=== PATIENT | male | born 1955 | race Caucasian/White ===

== ENCOUNTER 2019-09-12 12:56 | Emergency (ER) | payer SELFPAY ==
[2019-09-12] MEDS ORDERED: HYDROmorphone 1 MG/ML CARPUJECT IVP STA ×3 (13:27→16:20)
[2019-09-12] MEDS ORDERED: ONDANSETRON 4 MG/2 ML VIAL IVP STA (13:27)
--- NOTE | 2019-09-12 13:29 | ED Physician Documentation ---
PD HPI ABD PAIN - Stated complaint Stated Complaint: MALE PX - Chief complaint Chief Complaint: Abd Pain - History obtained from History obtained from: Patient - History of Present Illness Timing - onset: Other (Fairly sudden onset left lower quadrant and left flank pain last night associated with some hematuria without clots and some dysuria. No history of kidney stones.) Review of Systems Ten Systems: 10 systems reviewed and negative Constitutional: denies: Fever, Chills Cardiac: denies: Chest pain / pressure, Palpitations Respiratory: denies: Dyspnea, Cough PD PAST MEDICAL HISTORY - Present Medications Home Medications: Ambulatory Orders Medication Instructions Recorded Confirmed Polyethylene Glycol 3350 [Miralax] 17 gm PO DAILY PRN #1 bottle 09/12/19 traMADol [Ultram] 50 mg PO Q4-6H PRN #10 tablet 09/12/19 - Allergies Allergies/Adverse Reactions: Allergies Allergy/AdvReac Type Severity Reaction Status Date / Time ciprofloxacin Allergy Rash Verified 09/12/19 14:07 ketorolac [From Toradol] Allergy Anaphylaxis Verified 09/12/19 14:07 promethazine AdvReac Headache Verified 09/12/19 14:07 PD ED PE NORMAL - Vitals Vital signs reviewed: Yes - General General: Alert and oriented X 3, Other (Appears uncomfortable) - Neck Neck: Supple, no meningeal sign, No bony TTP - Cardiac Cardiac: RRR, No murmur - Respiratory Respiratory: No respiratory distress, Clear bilaterally - Abdomen Abdomen: Non tender - Back Back: Other (Mild left flank tenderness, no abdominal tenderness.) - Derm Derm: Normal color, Warm and dry - Extremities Extremities: No edema, No calf tenderness / cord - Neuro Neuro: Alert and oriented X 3, Normal speech Results - Vitals Vitals: Vital Signs - 24 hr 09/12/19 09/12/19 09/12/19 13:09 13:11 15:11 Temperature 36 C L 36.7 C Heart Rate 79 79 73 Respiratory 18 18 16 Rate Blood Pressure 147/74 H 147/74 H 134/79 H O2 Saturation 100 100 98 09/12/19 16:15 Temperature 36.5 C Heart Rate 76 Respiratory 16 Rate Blood Pressure 130/72 O2 Saturation 99 Oxygen O2 Source Room air - Labs Labs: Laboratory Tests 09/12/19 09/12/19 09/12/19 13:34 13:34 14:40 WBC 4.6 L RBC 4.03 L Hgb 12.2 L Hct 38.8 L MCV 96.3 H MCH 30.3 MCHC 31.4 L RDW 13.3 Plt Count 240 MPV 8.4 Neut # (Auto) 2.8 Lymph # (Auto) 1.1 L [place] # (Auto) 0.6 Eos # (Auto) 0.1 Baso # (Auto) 0.1 Absolute Nucleated RBC 0.00 Nucleated RBC % 0.0 Sodium Potassium Chloride Carbon Dioxide Anion Gap BUN Creatinine Estimated GFR (MDRD) Glucose Calcium Total Bilirubin AST ALT Alkaline Phosphatase Total Protein Albumin Globulin Albumin/Globulin Ratio Lipase Urine Color YELLOW Urine Clarity SL. CLOUDY Urine pH 7.0 Ur Specific Barry <=1.005 Urine Protein NEGATIVE Urine Glucose (UA) NEGATIVE Urine Ketones NEGATIVE Urine Occult Blood LARGE H Urine Nitrite NEGATIVE Urine Bilirubin NEGATIVE Urine Urobilinogen 0.2 (NORMAL) Ur Leukocyte Esterase NEGATIVE Urine RBC TNTC H Urine WBC 0-3 Ur Squamous Epith Cells MOD Squamous H Urine Bacteria Rare Ur Microscopic Review INDICATED Urine Culture Comments NOT INDICATED Urine Opiates Screen NEGATIVE Ur Oxycodone Screen NEGATIVE Urine Methadone Screen NEGATIVE Ur Propoxyphene Screen NEGATIVE Ur Barbiturates Screen NEGATIVE Ur Tricyclics Screen NEGATIVE Ur Phencyclidine Scrn NEGATIVE Ur Amphetamine Screen NEGATIVE U Methamphetamines Scrn NEGATIVE U Benzodiazepines Scrn NEGATIVE Urine Cocaine Screen NEGATIVE U Cannabinoids Screen NEGATIVE 09/12/19 14:40 WBC RBC Hgb Hct MCV MCH MCHC RDW Plt Count MPV Neut # (Auto) Lymph # (Auto) [place] # (Auto) Eos # (Auto) Baso # (Auto) Absolute Nucleated RBC Nucleated RBC % Sodium 139 Potassium 3.9 Chloride 105 Carbon Dioxide 27 Anion Gap 7.0 BUN 10 Creatinine 0.8 Estimated GFR (MDRD) 97 Glucose 88 Calcium 9.1 Total Bilirubin 0.7 AST 17 ALT 14 Alkaline Phosphatase 60 Total Protein 7.4 Albumin 4.3 Globulin 3.1 Albumin/Globulin Ratio 1.4 Lipase 33 Urine Color Urine Clarity Urine pH Ur Specific Barry Urine Protein Urine Glucose (UA) Urine Ketones Urine Occult Blood Urine Nitrite Urine Bilirubin Urine Urobilinogen Ur Leukocyte Esterase Urine RBC Urine WBC Ur Squamous Epith Cells Urine Bacteria Ur Microscopic Review Urine Culture Comments Urine Opiates Screen Ur Oxycodone Screen Urine Methadone Screen Ur Propoxyphene Screen Ur Barbiturates Screen Ur Tricyclics Screen Ur Phencyclidine Scrn Ur Amphetamine Screen U Methamphetamines Scrn U Benzodiazepines Scrn Urine Cocaine Screen U Cannabinoids Screen PD MEDICAL DECISION MAKING - ED course ED course: 64-year-old gentleman presents with flank pain and hematuria concerning for renal colic but initial noncontrast CT negative for same. This was followed by contrast CT To evaluate for vascular issues etc. which was out without pertinent positive findings otherwise. Urologic follow-up was advised. Departure - Departure Disposition: 01 Home, Self Care Clinical Impression: Left flank pain Hematuria Qualifiers: Hematuria type: gross Qualified Code(s): R31.0 - Gross hematuria Condition: Good Record reviewed to determine appropriate education?: Yes Instructions: ED Flank Pain Uncertain Cause, ED Hematuria Follow-Up: Oral Betancourt MD [Provider Admit Priv/Credential] - Within 1 week Prescriptions: Polyethylene Glycol 3350 [Miralax] 17 gm PO DAILY PRN #1 bottle PRN Reason: Constipation traMADol [Ultram] 50 mg PO Q4-6H PRN #10 tablet PRN Reason: Pain Comments: The cause of your symptoms is unclear today. Return for new or worsening symptoms. The only office findings on CT imaging was diverticulosis, which should not be painful at this point, and more stool than average. We will trial a laxative and some painkillers. You should follow-up with the urologist regarding the blood in your urine, see the number on this form and call today or tomorrow for the next available appointment.
[2019-09-12 14:09] LABS: BILIRUBIN,URINE NEGATIVE (NEGATIVE); GLUCOSE, URINE (UA) NEGATIVE (NEGATIVE); KETONES,URINE (UA) NEGATIVE (NEGATIVE); LEUKOCYTE ESTERASE, URINE NEGATIVE (NEGATIVE); NITRITE,URINE NEGATIVE (NEGATIVE); OCCULT BLOOD,URINE LARGE (NEGATIVE); PROTEIN,URINE NEGATIVE (NEGATIVE); UROBILINOGEN,URINE 0.2 (NORMAL) E.U./dL (NORMAL)
[2019-09-12 14:10] LABS: CLARITY,URINE SL. CLOUDY (CLEAR)
[2019-09-12 14:18] LABS: RBC,URINE TNTC /HPF (0-5)
[2019-09-12 14:19] LABS: BACTERIA,URINE Rare /HPF (None Seen); SQUAMOUS EPITHELIAL CELL,UR MOD Squamous (<= Few)
--- NOTE | 2019-09-12 14:46 | CT Report ---
Reason: L flank pain Procedure Date: 09/12/2019 Accession Number: [id number] / [id number] Procedure: CT - Abdomen/Pelvis WO CPT Code: Final Report FULL RESULT: EXAM: CT ABDOMEN AND PELVIS (CT KUB) EXAM DATE: 09/12/2019 02:19 PM. CLINICAL HISTORY: L flank pain. COMPARISONS: None. TECHNIQUE: Routine axial helical CT imaging was performed through the abdomen and pelvis without IV contrast. Reconstructions: Coronal and sagittal. In accordance with CT protocol optimization, one or more of the following dose reduction techniques were utilized for this exam: automated exposure control, adjustment of mA and/or KV based on patient size, or use of iterative reconstructive technique. FINDINGS: Lung Bases: Unremarkable. Right Kidney/Ureter: No stones, hydronephrosis, or hydroureter. No perinephric fat stranding. Left Kidney/Ureter: No stones, hydronephrosis, or hydroureter. No perinephric fat stranding. Other Solid Organs: Noncontrast images of the solid organs are grossly unremarkable. Gallbladder/Bile Ducts: Unremarkable. Peritoneal Cavity: Moderately prominent stool in the colon. Correlate for constipation. Pelvic Organs: Unremarkable urinary bladder contour. No intravesicular calculi. Vasculature: No significant abnormality. Other: None. IMPRESSION: No urinary tract stones or obstruction. Mild prominent stool in the colon. Correlate for constipation. Otherwise unremarkable. RADIA
[2019-09-12 14:48] LABS: BASOPHILS # (AUTO) 0.1 10^3/uL (0.0-0.1); BASOPHILS % (AUTO) 1.1 %; EOSINOPHILS # (AUTO) 0.1 10^3/uL (0.0-0.7); EOSINOPHILS % (AUTO) 1.7 %; HGB - HEMOGLOBIN 12.2 g/dL (14.0-18.0); LYMPHOCYTES # (AUTO) 1.1 10^3/uL (1.5-3.5); LYMPHOCYTES % (AUTO) 22.9 %; MEAN CORPUSCULAR HEMOGLOBIN 30.3 pg (27.0-31.0); MEAN CORPUSCULAR HGB CONC 31.4 g/dL (32.0-36.0); MEAN CORPUSCULAR VOLUME 96.3 fL (80.0-94.0); MEAN PLATELET VOLUME 8.4 fL (7.4-11.4); MONOCYTES # (AUTO) 0.6 10^3/uL (0.0-1.0); MONOCYTES % (AUTO) 12.7 %; NEUTROPHILS # (AUTO) 2.8 10^3/uL (1.5-6.6); NEUTROPHILS % (AUTO) 61.4 %; PLT - PLATELET COUNT 240 10^3/uL (130-450); RED BLOOD COUNT 4.03 10^6/uL (4.70-6.10); RED CELL DISTRIBUTION WIDTH 13.3 % (12.0-15.0); WHITE BLOOD COUNT 4.6 x10^3/uL (4.8-10.8)
[2019-09-12 15:00] LABS: ALBUMIN 4.3 g/dL (3.2-5.5); ALBUMIN/GLOBULIN RATIO 1.4 (1.0-2.2); BILIRUBIN,TOTAL 0.7 mg/dL (0.2-1.0); CALCIUM 9.1 mg/dL (8.5-10.3); CREATININE 0.8 mg/dL (0.6-1.2); TOTAL PROTEIN 7.4 g/dL (6.7-8.2)
[2019-09-12 15:09] LABS: MUDS CUTOFF CONCENTRATIONS CUTOFF CONC BELOW:
[2019-09-12] MEDS ORDERED: IOVERSOL 320 100 ML VIAL IVP ONE ×2 (15:12→15:50)
[2019-09-12 15:26] LABS: AMPHETAMINE SCREEN,URINE NEGATIVE (NEGATIVE); BENZODIAZEPINES SCREEN, URINE NEGATIVE (NEGATIVE); COCAINE SCREEN URINE NEGATIVE (NEGATIVE); METHADONE SCREEN, URINE NEGATIVE (NEGATIVE); METHAMPHETAMINES SCREEN, URINE NEGATIVE (NEGATIVE); OPIATE SCREEN, URINE NEGATIVE (NEGATIVE); OXYCODONE SCREEN, URINE NEGATIVE (NEGATIVE); PROPOXYPHENE SCREEN, URINE NEGATIVE (NEGATIVE); TRICYCLIC ANTIDEPRESSANT,URINE NEGATIVE (NEGATIVE)
--- NOTE | 2019-09-12 16:04 | CT Report ---
Reason: L flank pain Procedure Date: 09/12/2019 Accession Number: [id number] / [id number] Procedure: CT - Abdomen/Pelvis W CPT Code: Final Report FULL RESULT: EXAM: CT ABDOMEN AND PELVIS EXAM DATE: 09/12/2019 03:34 PM. CLINICAL HISTORY: L flank pain. COMPARISONS: ABDOMEN/PELVIS W/O 09/12/2019 2:19 PM. TECHNIQUE: Routine helical CT imaging was performed through the abdomen and pelvis. IV contrast: OPTI 320 100ML. Enteric contrast: No. Reconstructions: Coronal and sagittal. In accordance with CT protocol optimization, one or more of the following dose reduction techniques were utilized for this exam: automated exposure control, adjustment of mA and/or KV based on patient size, or use of iterative reconstructive technique. FINDINGS: Lung Bases: Unremarkable. Liver: Normal. No masses. Gallbladder/Bile Ducts: Unremarkable. Spleen: Normal. Pancreas: Normal. Adrenal Glands: Normal. Kidneys: Normal. No masses , definite stones, or hydronephrosis. Peritoneal Cavity/Bowel: Moderate colonic diverticulosis. No free fluid, free air or adenopathy. No masses or acute inflammatory process. Unremarkable region of appendix. Pelvic Organs: Normal. The bladder and visualized pelvic organs are within normal limits. Vasculature: No aneurysms or other significant abnormality. Bones: No significant abnormality. Other: Calcified injection granulomata in the buttocks. IMPRESSION: Moderate diverticulosis and other chronic or incidental findings. No definite acute disease. RADIA
[2019-09-12 16:15] VITALS: BP 130/72
== END 2019-09-12 16:49 | disposition home or self-care (01) ==
LOC: ED 12:56
DX: R10.32 Left lower quadrant pain (principal); R31.0 Gross hematuria
CPT/HCPCS: 36415; 74176; 74177; 80053; 81001; 83690; 85025; 96374; 96376; 99283; 99284; J1170; Q9967; 80306; 81003; 87086

== ENCOUNTER 2019-09-28 13:03 | Emergency (ER) | payer SELFPAY ==
[2019-09-28 13:27] LABS: BILIRUBIN,URINE NEGATIVE (NEGATIVE); GLUCOSE, URINE (UA) NEGATIVE (NEGATIVE); KETONES,URINE (UA) NEGATIVE (NEGATIVE); LEUKOCYTE ESTERASE, URINE NEGATIVE (NEGATIVE); NITRITE,URINE NEGATIVE (NEGATIVE); OCCULT BLOOD,URINE LARGE (NEGATIVE); PROTEIN,URINE NEGATIVE (NEGATIVE); UROBILINOGEN,URINE 0.2 (NORMAL) E.U./dL (NORMAL)
[2019-09-28 13:28] LABS: CLARITY,URINE CLEAR (CLEAR)
[2019-09-28 13:32] LABS: BASOPHILS # (AUTO) 0.1 10^3/uL (0.0-0.1); BASOPHILS % (AUTO) 0.7 %; EOSINOPHILS # (AUTO) 0.1 10^3/uL (0.0-0.7); HGB - HEMOGLOBIN 13.1 g/dL (14.0-18.0); LYMPHOCYTES % (AUTO) 11.2 %; MEAN CORPUSCULAR HEMOGLOBIN 29.9 pg (27.0-31.0); MEAN CORPUSCULAR HGB CONC 31.1 g/dL (32.0-36.0); MEAN CORPUSCULAR VOLUME 96.1 fL (80.0-94.0); MEAN PLATELET VOLUME 8.4 fL (7.4-11.4); MONOCYTES # (AUTO) 0.7 10^3/uL (0.0-1.0); MONOCYTES % (AUTO) 8.1 %; NEUTROPHILS # (AUTO) 6.9 10^3/uL (1.5-6.6); NEUTROPHILS % (AUTO) 78.7 %; PLT - PLATELET COUNT 277 10^3/uL (130-450); RED BLOOD COUNT 4.38 10^6/uL (4.70-6.10); RED CELL DISTRIBUTION WIDTH 13.8 % (12.0-15.0); WHITE BLOOD COUNT 8.8 x10^3/uL (4.8-10.8)
[2019-09-28 13:36] LABS: BACTERIA,URINE Rare /HPF (None Seen); RBC,URINE TNTC /HPF (0-5); SQUAMOUS EPITHELIAL CELL,UR NONE SEEN (<= Few)
[2019-09-28] MEDS ORDERED: MORPHINE 10 MG/ML VIAL IVP STA (13:40)
[2019-09-28 13:44] LABS: ALBUMIN 4.6 g/dL (3.2-5.5); ALBUMIN/GLOBULIN RATIO 1.3 (1.0-2.2); BILIRUBIN,TOTAL 0.8 mg/dL (0.2-1.0); CALCIUM 9.3 mg/dL (8.5-10.3); TOTAL PROTEIN 8.1 g/dL (6.7-8.2)
[2019-09-28] MEDS ORDERED: HYDROcod/ACETAM 5/325 MG TABLET PO STA (13:50)
--- NOTE | 2019-09-28 13:54 | ED Physician Documentation ---
History of Present Illness - Stated complaint Stated Complaint: MALE - Chief complaint Chief Complaint: Abd Pain - History obtained from History obtained from: Patient - History of Present Illness Timing: Today Pain level max: 7 Pain level now: 6 - Additonal information Additional information: 64-year-old male presents the emergency department complaint of left flank pain and blood in the urine today. Was seen approximately 2 weeks ago for similar symptoms with a normal noncontrast as well as a contrast CT. He states that the symptoms resolved since that time. He states that they recurred again today. He has an appoint with urology next week. Smokes a half a pack per day. Denies any IV drug use. Denies any alcohol use. No fevers. No diarrhea. No constipation. Nothing makes it better or worse Review of Systems Ten Systems: 10 systems reviewed and negative Constitutional: denies: Fever, Chills Nose: denies: Rhinorrhea / runny nose, Congestion Cardiac: denies: Chest pain / pressure Respiratory: denies: Cough GI: denies: Nausea, Vomiting, Diarrhea Skin: denies: Rash Musculoskeletal: denies: Neck pain, Back pain Neurologic: denies: Headache PD PAST MEDICAL HISTORY - Past Medical History Past Medical History: Yes Cardiovascular: None Respiratory: None Neuro: None Endocrine/Autoimmune: None GI: None : None HEENT: None Psych: None Musculoskeletal: None Derm: None - Past Surgical History Past Surgical History: Yes General: Appendectomy - Present Medications Home Medications: Ambulatory Orders Medication Instructions Recorded Confirmed Polyethylene Glycol 3350 [Miralax] 17 gm PO DAILY PRN #1 bottle 09/12/19 traMADol [Ultram] 50 mg PO Q4-6H PRN #10 tablet 09/12/19 Oxycodone HCl/Acetaminophen 1 - 2 each PO Q6H PRN #14 tablet 09/28/19 [Percocet 5-325 mg Tablet] - Allergies Allergies/Adverse Reactions: Allergies Allergy/AdvReac Type Severity Reaction Status Date / Time ciprofloxacin Allergy Rash Verified 09/28/19 13:07 ketorolac [From Toradol] Allergy Anaphylaxis Verified 09/28/19 13:07 promethazine AdvReac Headache Verified 09/28/19 13:07 - Social History Does the pt smoke?: Yes Smoking Status: Current every day smoker Does the pt drink ETOH?: No Does the pt have substance abuse?: No - Immunizations Immunizations are current?: Yes - POLST Patient has POLST: No PD ED PE NORMAL - Vitals Vital signs reviewed: Yes - General General: Alert and oriented X 3, No acute distress, Well developed/nourished - HEENT HEENT: PERRL, Moist mucous membranes - Neck Neck: Supple, no meningeal sign - Cardiac Cardiac: RRR, Strong equal pulses - Respiratory Respiratory: No respiratory distress, Clear bilaterally - Abdomen Abdomen: Soft, Non tender, Non distended - Back Back: Other (mild L CVAT) - Derm Derm: Warm and dry - Extremities Extremities: No edema - Neuro Neuro: Alert and oriented X 3 - Psych Psych: Normal mood, Normal affect Results - Vitals Vitals: Vital Signs - 24 hr 09/28/19 09/28/19 13:07 16:24 Temperature 36.5 C Heart Rate 87 59 L Respiratory 18 18 Rate Blood Pressure 158/91 H 152/85 H O2 Saturation 100 100 Oxygen O2 Source Room air - Labs Labs: Laboratory Tests 09/28/19 09/28/19 09/28/19 13:15 13:15 13:20 WBC 8.8 RBC 4.38 L Hgb 13.1 L Hct 42.1 MCV 96.1 H MCH 29.9 MCHC 31.1 L RDW 13.8 Plt Count 277 MPV 8.4 Neut # (Auto) 6.9 H Lymph # (Auto) 1.0 L [place] # (Auto) 0.7 Eos # (Auto) 0.1 Baso # (Auto) 0.1 Absolute Nucleated RBC 0.00 Nucleated RBC % 0.0 Sodium 140 Potassium 4.0 Chloride 105 Carbon Dioxide 28 Anion Gap 7.0 BUN 11 Creatinine 1.0 Estimated GFR (MDRD) 75 L Glucose 103 H Calcium 9.3 Total Bilirubin 0.8 AST 24 ALT 16 Alkaline Phosphatase 69 Total Protein 8.1 Albumin 4.6 Globulin 3.5 Albumin/Globulin Ratio 1.3 Lipase 32 Urine Color LT RED Urine Clarity CLEAR Urine pH 7.0 Ur Specific [place] 1.010 Urine Protein NEGATIVE Urine Glucose (UA) NEGATIVE Urine Ketones NEGATIVE Urine Occult Blood LARGE H Urine Nitrite NEGATIVE Urine Bilirubin NEGATIVE Urine Urobilinogen 0.2 (NORMAL) Ur Leukocyte Esterase NEGATIVE Urine RBC TNTC H Urine WBC 4-5 Ur Squamous Epith Cells NONE SEEN Urine Bacteria Rare Ur Microscopic Review INDICATED Urine Culture Comments NOT INDICATED - Rads (name of study) retroperitoneal US Radiology: Prelim report reviewed, EMP read contemporaneously, See rad report (Normal kidneys. No hydronephrosis. Bilateral ureteral jets identified. ) PD MEDICAL DECISION MAKING - ED course Complexity details: reviewed results, re-evaluated patient, considered differential, d/w patient ED course: Unclear etiology of the patient's pains and hematuria. Has an appointment with urology this week. Will prescribe pain medication for home. He is well-ap pearing, nontoxic. Afebrile. Will likely need a cystoscopy. Patient counseled regarding signs and symptoms for which I believe and urgent re-evaluation would be necessary. Patient with good understanding of and agreement to plan and is comfortable going home at this time This document was made in part using voice recognition software. While efforts are made to proofread this document, sound alike and grammatical errors may occur. No acute findings on ultrasound today. No acute findings on CT with and without contrast 2 weeks ago. Departure - Departure Disposition: Home, Self Care Clinical Impression: Left flank pain Hematuria Qualifiers: Hematuria type: gross Qualified Code(s): R31.0 - Gross hematuria Condition: Good Instructions: ED Abdominal Pain Unkn Cause, ED Hematuria Follow-Up: your,doctor in 1 week [Other] Oral Betancourt MD [Provider Admit Priv/Credential] - Oral Betancourt MD [Physician No Access] - Prescriptions: Oxycodone HCl/Acetaminophen [Percocet 5-325 mg Tablet] 1 - 2 each PO Q6H PRN #14 tablet PRN Reason: pain Comments: Follow-up with urology as scheduled next week. Return if you worsen. The cause of your symptoms is unclear today. Do not drink alcohol or drive while on narcotic pain medicine. Note that many narcotic pain relievers also contain tylenol/acetaminophen. Please ensure that your total dose of acetaminophen from all sources does not exceed 3 grams (3000mg) per day. You may constipated on this medication, take a stool softener such as "Colace" twice a day while you are on it. Also recommend a pyyk-iyi-rtwnswp laxative such as senna or MiraLAX any day that you do not have a bowel movement. If you received narcotic pain medication in the emergency department, do not drive or operate machinery for the next 24 hours. Discharge Date/Time: 09/28/19 16:51
[2019-09-28] MEDS ORDERED: HYDROmorphone 1 MG/ML CARPUJECT IM STA (14:50)
[2019-09-28 16:24] VITALS: BP 152/85
--- NOTE | 2019-09-28 16:28 | Ultrasound Report ---
Reason: L flank pain, hematuria Procedure Date: 09/28/2019 Accession Number: [id number] / [id number] Procedure: US - Retroperitoneal CPT Code: Final Report FULL RESULT: EXAM: RENAL ULTRASOUND EXAM DATE: 09/28/2019 04:02 PM. CLINICAL HISTORY: L flank pain, hematuria. COMPARISON: ABDOMEN/PELVIS W/ 09/12/2019 3:30 PM. TECHNIQUE: Real-time scanning was performed with static images obtained. FINDINGS: Right Kidney: 10.3 x 5.1 x 5.2 cm. Normal echotexture with no stones, contour-deforming masses, or hydronephrosis. Left Kidney: 9.6 x 4.4 x 4.4 cm. Normal echotexture with no stones, contour-deforming masses, or hydronephrosis. Bladder: Bilateral jets seen. The prevoid bladder volume was 70.2 cc. The postvoid bladder volume was 7.2 cc. Other: Prostate measures 3.3 x 2.5 x 4.8 cm and contains coarse calcifications. IMPRESSION: Normal kidneys. No hydronephrosis. Bilateral ureteral jets identified. RADIA
== END 2019-09-28 16:51 | disposition home or self-care (01) ==
LOC: ED 13:03
DX: R10.9 Unspecified abdominal pain (principal); R31.0 Gross hematuria; F17.210 Nicotine dependence, cigarettes, uncomplicated
CPT/HCPCS: 36415; 76770; 80053; 81001; 83690; 85025; 96372; 99284; 99285; A9270; J1170; 81003; 87086